=== PATIENT | female | born 1985 | race Caucasian/White ===

== ENCOUNTER 2024-04-24 03:30 | Emergency (ER) | payer OTHER ==
[~2024-04-24] VITALS: Ht 172.7 cm; Wt 86.2 kg
[2024-04-24 03:54] VITALS: BP 145/89; TEMP 98.8
[2024-04-24] MEDS ORDERED: [UNRECOGNIZED DRUG - OTHER] MM STA (04:06)
[2024-04-24] MEDS ORDERED: LIDOCAINE VISCOUS 2% UD 15 ML UDC ONE (04:43)
[2024-04-24] MEDS ORDERED: diphenhydrAMINE HCL ELIX 25 MG/10 ML UDC ONE (04:44)
[2024-04-24] MEDS ORDERED: CHLO473M5 PO (04:49)
[2024-04-24] MEDS: LIDOCAINE VISCOUS 2% UD 15 ML UDC MM ONE (04:49)
[2024-04-24] MEDS: diphenhydrAMINE HCL ELIX 25 MG/10 ML UDC PO ONE (04:50)
[2024-04-24 04:57] VITALS: O2SAT 98
== END 2024-04-24 04:59 | disposition home or self-care (01) ==
LOC: ER 03:36 → EDBD 03:36 → ER 04:59
DX: K12.1 Other forms of stomatitis (principal); Z91.018 Allergy to other foods
CPT/HCPCS: 99283; Q0163